=== PATIENT | male | born 1985 | race Caucasian/White ===

== ENCOUNTER 2020-06-03 14:44 | Emergency (ER) | payer OTHER, SELFPAY ==
[2020-06-03 14:55] VITALS: BP 128/78; PULSE 84; RESP 16; TEMP 36.8; O2SAT 97; BMI 26.4
--- NOTE | 2020-06-03 15:17 | DI.US.S_ITS ---
PROCEDURE: US SCROTUM INDICATIONS: LEFT TESTICULAR PAIN TECHNIQUE: Real-time scanning was performed of the scrotum and testicles, with image documentation. Color and pulse Doppler interrogation was performed of both testicles. COMPARISON: None. FINDINGS: Right: Testicle is normal in size at 4.7 x 2.6 x 3.5 cm, and homogenous in echotexture. Epididymis is normal in overall size and morphology. No hydrocele or varicoceles. Overlying scrotal skin is normal in thickness. Left: Testicle is normal in size at 4.5 x 2.4 x 3.1 cm, and homogeneous in echotexture. Epididymis is normal in overall size and morphology. No hydrocele or varicoceles. Overlying scrotal skin is normal in thickness. Doppler: Color and pulse Doppler demonstrate normal and symmetric arterial flow in both testicles. IMPRESSION: Negative scrotal ultrasound. Dictated by: Edgardo Ulloa M.D. on 06/03/2020 at 16:13 Approved by: Edgardo Ulloa M.D. on 06/03/2020 at 16:13
[2020-06-03] MEDS: KETOROLAC 60 MG/2 ML VIAL 30 MG IM (17:07)
[2020-06-03 17:54] VITALS: BP 124/76; PULSE 72; RESP 12; O2SAT 100
[2020-06-03 18:09] LABS: Urine N gonorrhoeae NOT DETECTED
[2020-06-03 18:38] LABS: Urine Chlamydia NOT DETECTED
--- NOTE | 2020-06-03 19:15 | ED.MALEGU ---
HPI - Male Genitourinary <VERNON Campbell - Last Filed: 06/03/20 19:20> General Chief complaint: Urogenital-Male Stated complaint: Lt testicular Pain Time Seen by Provider: 06/03/20 15:09 Source: patient Mode of arrival: Ambulatory Limitations: no limitations History of Present Illness HPI Narrative: The patient is a 34-year-old male former smoker who denies pertinent medical history presents with a chief complaint of left testicular pain that started yesterday. He was lifting and moving saws in his garage. He noticed that his left testicle was increasingly painful. He denies any dysuria urgency or frequency. Denies any possibility of sexually transmitted infections. He states he has had a vasectomy in 2017, otherwise no surgical procedures or problems. He called the nurse hotline who referred him to the emergency department. He denies any swelling or rash. Denies any penile drainage. Denies any fevers muscle aches or chills. Denies any abdominal pain. He states that the pain is 2/10 Related Data Previous Rx's Medication Instructions Recorded ketorolac 10 mg PO TID PRN #15 tab 06/03/20 Allergies Allergy/AdvReac Type Severity Reaction Status Date / Time No Known Drug Allergies Allergy Verified 06/04/20 12:51 Review of Systems <VERNON Campbell - Last Filed: 06/03/20 19:20> Review of Systems Narrative: GENERAL: Denies chills, fatigue, malaise, fever, sweats. HEENT: Denies sinus pain, ear pain, sore throat, difficulty swallowing, dizziness. RESPIRATORY: Denies dyspnea, cough, wheezing, hemoptysis, sputum. CARDIOVASCULAR: Denies chest pain, palpitations, orthopnea, edema, GASTROINTESTINAL: Denies nausea, vomiting, abdominal pain, diarrhea, constipation, melena. : See HPI MUSCULOSKELETAL: denies weakness, joint pain, or bony pain SKIN: Denies rash, skin lesions, or other NEUROLOGIC: Denies weakness, headache, numbness, change in speech, confusion, seizures, incoordination. PSYCHIATRIC: No concerning psychosocial issues. 12 point review of systems is negative except for those stated above Patient History <VERNON Campbell - Last Filed: 06/03/20 19:20> Smoking Status: Former smoker alcohol intake frequency: 0-2 drinks per day Substance Use Type: does not use Exam <VERNON Campbell - Last Filed: 06/03/20 19:20> Narrative Exam Narrative: GENERAL: This is a well-nourished, well-developed patient, in no acute distress HEAD: Atraumatic. Normocephalic. No temporal or scalp tenderness. EYES: Pupils equal round and reactive. Extraocular motions intact. No scleral icterus. No injection or drainage. ENT: Nose without bleeding, purulent drainage or septal hematoma. Wearing a mask. Airway patent. NECK: Trachea midline. No JVD or lymphadenopathy. Supple, nontender, no meningeal signs. CARDIOVASCULAR: Regular rate and rhythm RESPIRATORY: No cough. No increased respiratory effort. No accessory muscle use GASTROINTESTINAL: Abdomen soft, non-tender, nondistended. No hepato-splenomegaly, or palpable masses. No guarding. : With Renato RN at bedside, no rash or penile drainage noted. Positive cremasteric reflexes bilaterally. Slight tenderness to palpation of left testicle. No palpable masses. BACK: Nontender without deformity or crepitance. No flank tenderness. NEURO: AOx3. SKIN: No rash or erythema. Initial Vital Signs Initial Vital Signs: Vital Signs Temperature 98.3 F 06/03/20 14:55 Pulse Rate 84 06/03/20 14:55 Respiratory Rate 16 06/03/20 14:55 Blood Pressure 128/78 06/03/20 14:55 Pulse Oximetry 97 06/03/20 14:55 <Bev Esposito DO - Last Filed: 06/05/20 13:22> Initial Vital Signs Initial Vital Signs: Vital Signs Temperature 98.3 F 06/03/20 14:55 Pulse Rate 84 06/03/20 14:55 Respiratory Rate 16 06/03/20 14:55 Blood Pressure 128/78 06/03/20 14:55 Pulse Oximetry 97 06/03/20 14:55 Scores <VERNON Campbell - Last Filed: 06/03/20 19:20> GCS [place] coma scale eye opening: Spontaneous Bobby coma scale verbal response: Orientated Bobby coma scale motor response: Obey commands Bobby coma scale total score: 15 Course <VERNON Campbell - Last Filed: 06/03/20 19:20> Orders Ordered: Discontinued Medications Ketorolac Tromethamine (Ketorolac 60 Mg/2 Ml Vial) 30 mg IM NOW ONE Stop: 06/03/20 17:03 Last Admin: 06/03/20 17:07 Dose: 30 mg Documented by: RENETTA Vital Signs Vital signs: Vital Signs - 8 hr 06/03/20 14:55 06/03/20 17:54 Temperature 98.3 F Pulse Rate 84 72 Respiratory Rate 16 12 Blood Pressure 128/78 124/76 Pulse Oximetry 97 100 <Bev Esposito DO - Last Filed: 06/05/20 13:22> Orders Ordered: Discontinued Medications Ketorolac Tromethamine (Ketorolac 60 Mg/2 Ml Vial) 30 mg IM NOW ONE Stop: 06/03/20 17:03 Last Admin: 06/03/20 17:07 Dose: 30 mg Documented by: RENETTA Vital Signs Vital signs: Vital Signs - 8 hr 06/03/20 14:55 06/03/20 17:54 Temperature 98.3 F Pulse Rate 84 72 Respiratory Rate 16 12 Blood Pressure 128/78 124/76 Pulse Oximetry 97 100 MDM - Male Genitourinary <VERNON Campbell - Last Filed: 06/03/20 19:20> Lab Data Labs: Lab Results 06/03/20 Range/Units 15:55 Ur Chlamydia DNA (PCR) Not detected N gonorrhoeae DNA (PCR) Not detected Urine Dip Bedside Urine Glucose Negative Bedside Urine Bilirubin - Negative Bedside Urine Ketone - Negative Urine Specific [place] 1.015 Bedside Urine Occult Blood - Negative Bedside Urine pH 6.5 Bedside Urine Protein - Negative Bedside Urine Urobilinogen +/- 1mg Bedside Urine Nitrite - Negative Bedside Urine Leukocytes - Negative Esterase Imaging Data Scrotum ultrasound: Radiologist's Impression: [address] [place] [id number] ReportSigned Patient: Yemi Diaz JOSIER#: [id number]: 1985Acct:[id number]/Sex: 34 / MDate of Service: 06/03/20Loc: EDAccession Number: [id number] Procedure: US scrotum Ordering Provider: Bev Cheng PROCEDURE: US SCROTUM INDICATIONS: LEFT TESTICULAR PAIN TECHNIQUE: Real-time scanning was performed of the scrotum and testicles, with image documentation. Color and pulse Doppler interrogation was performed of both testicles. COMPARISON: None. FINDINGS: Right: Testicle is normal in size at 4.7 x 2.6 x 3.5 cm, and homogenous in echotexture. Epididymis is normal in overall size and morphology. No hydrocele or varicoceles. Overlying scrotal skin is normal in thickness. Left: Testicle is normal in size at 4.5 x 2.4 x 3.1 cm, and homogeneous in echotexture. Epididymis is normal in overall size and morphology. No hydrocele or varicoceles. Overlying scrotal skin is normal in thickness. Doppler: Color and pulse Doppler demonstrate normal and symmetric arterial flow in both testicles. IMPRESSION: Negative scrotal ultrasound. Dictated by: Edgardo Ulloa M.D. on 06/03/2020 at 16:13 Approved by: Edgardo Ulloa M.D. on 06/03/2020 at 16:13 [facility] Narrative Medical decision making narrative: The patient is a 34-year-old male who presents with a chief complaint of testicular pain. Overall he has a benign exam, normal urinalysis, negative gonorrhea chlamydia negative scrotal ultrasound. I a did discuss at length with the patient that we can do a trial of ketorolac, follow-up with primary care provider in for strict ER return precautions for any acute concerns. He is okay with this plan. Discussed findings and patient plan with Dr. Esposito Discussed at length with patient to come back to the ER for sudden severe pain or any other acute concerns. Discussed follow-up with primary care provider in the next few days. Patient has no questions or concerns upon discharge states understanding of return precautions as well as follow-up care. <Bev Esposito, - Last Filed: 06/05/20 13:22> Lab Data Labs: Lab Results 06/03/20 Range/Units 15:55 Ur Chlamydia DNA (PCR) Not detected N gonorrhoeae DNA (PCR) Not detected Urine Dip Bedside Urine Glucose Negative Bedside Urine Bilirubin - Negative Bedside Urine Ketone - Negative Urine Specific [place] 1.015 Bedside Urine Occult Blood - Negative Bedside Urine pH 6.5 Bedside Urine Protein - Negative Bedside Urine Urobilinogen +/- 1mg Bedside Urine Nitrite - Negative Bedside Urine Leukocytes - Negative Esterase Discharge Plan Departure Patient Disposition: Home Clinical Impression: Left testicular pain Instructions: DI for Testicular Pain Activity Restrictions/Additional Instructions: Thank you for trusting us with your care today. As discussed, your ultrasound came back normal with no signs of testicular torsion, or other acute abnormalities. Your urinalysis had no signs of infection. We will call you if the other urine test result positive. I sent in a prescription of ketorolac or Toradol to the [facility] pharmacy. I have given you a prescription of Toradol. This is an NSAID. Do not combine it with other NSAIDs such as Aleve or ibuprofen. I suggest taking it with some food, as it can irritate your stomach. Please follow-up with primary care provider in the next few days. As discussed please come back to the emergency department for any acute concerns. This includes worsening pain etcetera. Prescriptions: New ketorolac 10 mg tablet 10 mg PO TID PRN (Reason: pain) Qty: 15 RF: 0 Referrals: Peggy Agudelo MD [Primary Care Provider] - <Bev Esposito DO - Last Filed: 06/05/20 13:22> Cosign ED Attending Germaine Attestation: I was immediately available in the department for consultation. Documentation has been reviewed. Case was discussed. Agree with current plan.
== END 2020-06-03 17:56 | disposition home or self-care (01) ==
PROVIDERS: Emergency Provider Nurse Practitioner Family; PCP Internal Medicine
DX: N50.812 Left testicular pain (principal)
CPT/HCPCS: 76870; 81003; 87491; 87591; 96372; 99283; J1885